=== PATIENT | male | born 1965 | race Asian ===

== ENCOUNTER → 2018-10-22 | Outpatient (CLI) | payer OTHER ==
[~2018-10-22] VITALS: Ht 165.1 cm; Wt 61.2 kg
[2018-10-22 08:27] VITALS: BP 122/82
[2018-10-22 08:58] LABS: HEMATOCRIT 37.4 % (42.0-52.0); HEMOGLOBIN 12.1 gm/dL (14.0-18.0); MCH 22.8 pg (26.0-34.0); MCHC 32.2 g/dL (28.0-37.0); MCV 70.7 fL (80.0-100.0); MPV 8.8 fl. (7.2-11.1); RBC 5.29 mil/uL (4.50-6.00); RDW-CV 14.4 % (10.5-14.5); WBC 5.5 thou/uL (4.0-11.0)
[2018-10-22 09:09] LABS: CALCIUM 8.5 mg/dL (8.5-10.1); CREATININE 0.9 mg/dL (0.6-1.3); POTASSIUM 4.1 mmol/L (3.5-5.1)
[2018-10-22 09:13] LABS: INR 0.9; PROTIME 9.4 Seconds (9.20-11.50)
== END | disposition home or self-care (01) ==
LOC: M.INT 10-14 10:00
PROVIDERS: Radiology Vascular & Interventional Radiology
DX: C11.9 Malignant neoplasm of nasopharynx, unspecified (principal); F17.210 Nicotine dependence, cigarettes, uncomplicated; Z79.01 Long term (current) use of anticoagulants; Z79.899 Other long term (current) drug therapy